=== PATIENT | female | born 1965 | race Caucasian/White ===

== ENCOUNTER 2020-05-07 06:54 | Outpatient (NON) | payer OTHER, SELFPAY ==
[2020-05-08 02:59] LABS: SARS-CoV-2 RNA PCR Negative
== END 2020-05-07 06:55 ==
LOC: ANHCOVIDDT 07:05
PROVIDERS: PCP Family Medicine; Visit Provider Family Medicine
DX: Z20.828 Contact with and (suspected) exposure to other viral communicable diseases (principal); R50.9 Fever, unspecified
CPT/HCPCS: 87635; C9803; U0003

== ENCOUNTER → 2020-10-06 11:00 | Outpatient (CLI) | payer OTHER, SELFPAY ==
[2020-10-07 00:42] LABS: SARS-CoV-2 RNA PCR Negative
== END ==
PROVIDERS: PCP Family Medicine; Visit Provider Physician Assistant
DX: Z20.822 Contact with and (suspected) exposure to COVID-19 (principal); R09.89 Other specified symptoms and signs involving the circulatory and respiratory systems
CPT/HCPCS: C9803; U0003; U0005

== ENCOUNTER → 2020-10-30 06:43 | Outpatient (CLI) | payer OTHER, SELFPAY ==
[2020-10-31 14:59] LABS: SARS-CoV-2 RNA PCR Negative
== END ==
PROVIDERS: PCP Family Medicine; Visit Provider Family Medicine
DX: R50.9 Fever, unspecified (principal); J22 Unspecified acute lower respiratory infection; Z20.822 Contact with and (suspected) exposure to COVID-19
CPT/HCPCS: C9803; U0003; U0005

== ENCOUNTER → 2021-10-02 12:35 | Outpatient (CLI) | payer OTHER, SELFPAY ==
--- NOTE | ~2021-10-02 | XR_ITS ---
XR chest 2V DATE: 10/02/2021 12:48 INDICATION: Chronic obstructive pulmonary disease TECHNIQUE: 2 views COMPARISON: 04/27/2017 two-view chest FINDINGS: Prominent bilateral hyperinflation with increased retrosternal airspace and flattening the diaphragm, consistent with COPD. No pulmonary infiltrate or consolidation or pulmonary mass lesion is evident. No hilar or mediastinal enlargement. Normal heart size. No pulmonary vascular congestion or pleural effusion or pneumothorax . Osteopenia. IMPRESSION: COPD Reviewed, dictated and finalized at location A. IMPRESSION: COPD
== END ==
PROVIDERS: PCP Family Medicine; Visit Provider Family Medicine
DX: J44.1 Chronic obstructive pulmonary disease with (acute) exacerbation (principal)
CPT/HCPCS: 71046

== ENCOUNTER 2025-02-14 12:11 | Outpatient (CLI) | payer OTHER, SELFPAY ==
--- OUTSIDE RECORDS SUMMARY | 2025-02-14 12:15 | XMS_ITS | Clinical Summary ---
Author Organization [facility] Address [address] [place] [address] Care Team Providers Care Fudger Name Role Phone Elida Mcbride Primary Care Provider [phone] Allergies Active Allergy Reactions Criticality Noted Date Comments Penicillins Rash Low 10/14/2024 Medications sertraline (ZOLOFT) 100 MG tablet Take 2 tablets (200 mg total) by mouth daily. Active azithromycin (ZITHROMAX) 250 MG tablet Take 1 tablet (250 mg total) by mouth daily. For duration of 6 months 5 Active naltrexone (DEPADE) 50 MG tablet Take 1 tablet (50 mg total) by mouth daily. 5 Active pantoprazole EC (PROTONIX) 40 MG tablet Take 1 tablet (40 mg total) by mouth daily. Active BREZTRI AEROSPHERE 160-9-4.8 MCG/ACT inhaler Inhale 2 puffs into the lungs 2 (two) times daily. 10.7 g 3 5 Active albuterol sulfate HFA 108 (90 Base) MCG/ACT inhaler Inhale 1 puff into the lungs every 4 (four) hours as needed. 18 g 3 5 Active losartan (COZAAR) 25 MG tablet Take 1 tablet (25 mg total) by mouth daily. 30 tablet 3 5 Active magnesium oxide (MAG-OX) 400 (240 Mg) MG tablet Take 1 tablet (400 mg total) by mouth daily. 30 tablet 3 5 Active predniSONE (DELTASONE) 20 MG tablet Take 2 tablets (40 mg total) by mouth daily for 3 days, THEN 1 tablet (20 mg total) daily for 3 days, THEN 0.5 tablets (10 mg total) daily for 3 days. 11 tablet 01/21/20 25 Active Problems Problem Noted Date Diagnosed Date COPD exacerbation ([facility]) 01/05/2025 Hypoxia 10/15/2024 CAP (community acquired pneumonia) 10/14/2024 Coffee ground emesis 10/14/2024 Encounters Date Type Department Care Team Description 02/06/2025 9:00 AM CDT - 02/06/2025 11:59 PM CDT Hospital Encounter [facility] Ultrasound [address] [place] [address] Elida Mcbride PA Discharge Disposition: Home or Self Care (Routine Discharge) 02/06/2025 Travel 01/11/2025 10:30 AM CDT Home Care Visit [facility] Home Care [address] [place] [address] [place] [address] Jael Spence RN SN NON ADMIT SOC 01/10/2025 Telephone [facility] Home Care [address] [place] [address] [place] [address] Jay Shipley MD Advise 01/07/2025 Travel 01/05/2025 11:32 AM CDT - 01/10/2025 11:58 AM CDT Hospital Encounter [facility] Medical/Surgical [address] [place] [address] Sandra Lopes MD SanchezRemigio MD Shortness Of Breath Discharge Disposition: Home or Self Care (Routine Discharge) 01/05/2025 Travel 12/10/2024 Telephone [facility] [address], [address] [place] [address] Hayes Gamino MD Results 11/29/2024 Telephone [facility] - [address], [address] [place] [id number] Hayes Gamino MD Information from Last 3 Months Social History Tobacco Use Types Packs/Day Years Used Date Smoking Tobacco: Every Day Cigarettes Smokeless Tobacco: Never Tobacco Cessation:Ready to Q uit: No; Counseling Given: Yes Alcohol Use Standard Drinks/Week Comments Yes 0 (1 standard drink = 0.6 oz pur e alcohol) several times a day B1300 Health Literacy Answer Date Recor ded How often do you need to hav e someone help you when you read instructions, pamphlets, or other written material from your doctor or pharmacy? Never 01/07/2025 [facility] Utilities Answer Date Recorded In the past 12 months has e [employer], gas, oil, or water [employer] threatened to shut off services in your home? No 01/07/2025 Humiliation, Afraid, Rape, and Kick questionnair e Answer Date Recorded Within the last year, have y ou been afraid of your partner or ex-partner? No 01/07/2025 Within the last year, have y ou been humiliated or emotionally abused in other ways by your partner or ex-partner? No Within the last year, have y ou been kicked, hit, slapped, or otherwise physically hurt by your partner or ex-partner? No 01/07/2025 Within the last year, have y ou been raped or forced to have any kind of sexual activity by your partner or ex-partner? No 01/07/2025 Social Connection and Isolat ion Panel [NHANES] Answer Date Recorded In a typical week, how many times do you talk on the phone with family, friends, or neighbors? More than three times a week 01/07/2025 How often do you get togethe r with friends or relatives? Once a week 01/07/2025 How often do you attend chur ch or church services? Never 01/07/2025 Do you belong to any clubs o r organizations such as roman catholic groups, unions, fraternal or athletic groups, or school groups? No 01/07/2025 How often do you attend meet ings of the clubs or organizations you belong to? Never 01/07/2025 Are you , , di vorced, , never , or living with a partner? 01/07/2025 AUDIT-C Answer Date Recorded Q1: How often do you have a drink containing alcohol? 4 or more times a week 01/07/2025 Q2: How many drinks containi ng alcohol do you have on a typical day when you are drinking? 3 or 4 Q3: How often do you have si x or more drinks on one occasion? Weekly 01/07/2025 Overall Financial Resource Strain (CARDIA) Answe r Date Recorded How hard is it for you to pa y for the very basics like food, housing, medical care, and heating? Not very hard 01/07/2025 PHQ-2 Answer Date Recorded Patient Health Questionnaire-2 Score 0 10/15/2024 [facility] - Occupational Stress Questionnaire Answer Date Recorded Do you feel stress - tense, restless, nervous, or anxious, or unable to sleep at night because your mind is troubled all the time - these days? Not at all 01/07/2025 Exercise Vital Sign Answer Date Recorde d On average, how many days pe r week do you engage in moderate to strenuous exercise (like a brisk walk)? 0 days 01/07/2025 On average, how many minutes do you engage in exercise at this level? 0 min 01/07/2025 Hunger Vital Sign Answer Date Recorded Within the past 12 months, y ou worried that your food would run out before you got the money to buy more. Never true 01/08/20 25 Within the past 12 months, t he food you bought just didn't last and you didn't have money to get more. Never true 01/07/2025 PRAPARE - Transportation Answer Date Re corded In the past 12 months, has l ack of transportation kept you from medical appointments or from getting medications? No 01/2025 In the past 12 months, has l ack of transportation kept you from meetings, work, or from getting things needed for daily living? No 01/07/2025 Housing Stability Vital Sign Answer Chava e Recorded In the last 12 months, was t here a time when you were not able to pay the mortgage or rent on time? No 01/07/2025 In the past 12 months, how m any times have you moved where you were living? 0 01/07/2025 At any time in the past 12 m [facility], were you homeless or living in a senior living (including now)? No 01/07/2025 Comments No Sex and Gender Information Value Date Recorded Sex Assigned at Female 10/14/2024 8:22 PM CDT Legal Sex Female 8:16 PM CDT Gender Identity Not on file Sexual Orientation Not on file Last Filed Vital Signs Vital Sign Reading Time Taken Comments Blood Pressure 137/87 01/10/2025 7:45 AM CDT Pulse 74 01/10/2025 7:45 AM CDT Temperature 36.4 C (97.6 F) 01/10/2025 7:45 AM CDT Respiratory Rate 20 01/10/2025 7:45 AM CDT Oxygen Saturation 89% 01/10/2025 7:45 AM CDT Inhaled Oxygen Concentration - - Weight 75.2 kg (165 lb 12.6 oz) 01/09/2025 2:29 AM CDT Height 165.1 cm (5' 5) 01/05/2025 11:4 0 AM CDT Body Mass Index 27.59 01/05/2025 11:40 AM CDT Plan of Treatment Health Maintenance Due Date Last Done Comments Cervical Cancer Screening Pa p Smear (Age 30 to 64) Every 3 Years 1966 Colorectal Cancer Screening Colonoscopy (10 Years) 1966 Annual Physical 1969 Hepatitis C 1984 DTaP, Tdap and Td Vaccines ( 1 - Tdap) 1985 Hepatitis B Vaccines (1 of 3 - 19+ 3-dose series) 1985 Pneumococcal Vaccine: 50+ Years (1 of 2 - PCV) 1985 Cervical Cancer Screening Pa p with HPV Testing (Age 30 to 64) Every 5 Years 1996 Cervical Cancer Screening wi th HPV 1996 Mammogram Screening 2006 Zoster Vaccines (1 of 2) 2016 COVID-19 Vaccine (2023-2 5 season) 2024 06/21/2021, 12/18/2020, 11/20/2020 PHQ-2 (Physician Dunlevy) Completed 10/15/2024 Meningococcal B Vaccine Aged Out No l onger eligible based on patient's age to complete this topic Meningococcal Vaccine Aged Out No alvin wendie eligible based on patient's age to complete this topic RSV Immunizations Under 20 Months Aged Out No longer eligible b ased on patient's age to complete this topic Interventions Community Resource Recommendations Community Resource Services Recommended Domains Addressed Status Status Reason/Outcome Date/Time [facility] - Out in Recovery Addiction Outpatient Treatment, Substance Use Counseling, Substance Use Services Alcohol Use, Tobacco Use Recommended 01/21/2025 9:52 PM CDT from Last 12 Months Procedures Procedure Name Priority Date/Time Associated Diagnosis Comments USE ECHOCARDIOGRAM W CON Routine 02/06/2025 9:58 AM CDT Shortness of breath Alcohol abuse, uncomplicated Fatty (change of) liver, not elsewhere classified Simple chronic bronchitis ([facility]) COMPREHENSIVE METABOLIC PANEL Routine 01/10/2025 5:15 AM CDT SIX MINUTE WALK Routine 01/09/2025 7:56 AM CDT COMPREHENSIVE METABOLIC PANEL Routine 01/09/2025 5:20 AM CDT CBC W/DIFF AUTOMATED Routine 01/09/2025 5:20 AM CDT RESPIRATORY PCR PANEL 2 STAT 01/09/20 10:45 AM CDT MAGNESIUM Routine 01/08/2025 5:20 AM CDT COMPREHENSIVE METABOLIC PANEL Routine 01/08/2025 5:20 AM CDT CBC W/DIFF AUTOMATED Routine 01/08/2025 5:20 AM CDT BASIC METABOLIC PANEL TIMED 01/07/2025 2:13 PM CDT CTA CHEST PE PROTOCOL STAT 01/07/2025 10:25 AM CDT D-DIMER, QUANTITATIVE STAT 01/07/2025 8:46 AM CDT POCT ARTERIAL BLOOD GAS Routine 01/08/20 8:24 AM CDT I-STAT VENOUS BLOOD GAS CG4 PLUS STAT 01/07/2025 8:00 AM CDT US ABD LIMITED Today 01/07/2025 7:47 AM CDT MAGNESIUM Routine 01/07/2025 5:20 AM CDT COMPREHENSIVE METABOLIC PANEL Routine 01/07/2025 5:20 AM CDT CBC W/DIFF AUTOMATED Routine 01/07/2025 5:20 AM CDT COMPREHENSIVE METABOLIC PANEL Routine 01/06/2025 4:05 AM CDT CBC W/DIFF AUTOMATED Routine 01/06/2025 4:05 AM CDT XR CHEST PORTABLE STAT 01/05/2025 12: 12 PM CDT ECG 12-LEAD Routine 01/05/2025 11:48 AM CDT RESP SYNCYTIAL VIRUS STAT 01/05/2025 11:35 AM CDT CORONAVIRUS (COVID 19) STAT 11:35 AM CDT INFLUENZA A & B STAT 01/05/2025 11:35 AM CDT MAGNESIUM Routine 01/05/2025 11:35 AM CDT PROCALCITONIN (PCT) STAT 01/05/2025 1 1:35 AM CDT PRO-BRAIN NATRIURETIC PEPTIDE Routine 01/05/2025 11:35 AM CDT TROPONIN, QUANT STAT 01/05/2025 11:35 AM CDT COMPREHENSIVE METABOLIC PANEL STAT 01/05/2025 11:35 AM CDT CBC W/DIFF AUTOMATED STAT 01/05/2025 11:35 AM CDT from Last 3 Months Results * USE ECHOCARDIOGRAM W CON (02/06/2025 9:58 AM CDT) Anatomical Region Laterality Modality NA Ultrasound 02/06/2025 9:13 AM CDT Narrative 02/09/2025 7:56 PM CDT GUY DESIR Pat.Name: Alexis Martinez Pat.ID: [id number] St.Date: 02/06/2025 Refer.MD: Nicanor, [facility] Exam Time: 9:13:00 AM Study Type:OUTREACH Height: 65 in Weight: 150 lb BSA: 1.75 m2 Age: 2 1965,59Y Sex: F Pat. Stat.:Outpatient Reason for Study:SOB Procedures: 2D, M-mode, Doppler, Color Flow, Myocardial contrast was used to enhance endocardial definition. Study performed at [facility], [place], [place] and interpreted by [facility]. ++++++++++++++++++++++++++++++++++++ SUMMARY: ++++++++++++++++++++++++++++++++++++ The left ventricular systolic function is normal. Estimated left ventricular ejection fraction is 60-65%. Left ventricular diastolic function is not reliably assessed. Wall motion appears normal in all segments. Right ventricular systolic function is mildly depressed. No significant valvular abnormalities. Compared to the previous study the ejection fraction has not changed. ++++++++++++++++++++++++++++++++++++ FINDINGS: ++++++++++++++++++++++++++++++++++++ LV: The left ventricular size is normal. The left ventricular systolic function is normal. Estimated left ventricular ejection fraction is 60-65%. Left ventricular diastolic function is not reliably assessed. WM: Wall motion appears normal in all segments. RV: The right ventricular size is normal. Right ventricular systolic function is mildly depressed. TAPSE = 14mm (<16 mm indicates systolic RV dysfunction). LA: Left atrial size is normal. RA: The right atrial size is normal. IAS: Atrial septum appears intact. LIDIA: No evidence of pericardial effusion. Prominent pericardial fat pad visualized. AO: Aorta is normal. PA: Estimated right atrial pressure of 3 mmHg. Unable to reliably quantitate pulmonary systolic pressure. SVn: Inferior vena cava is normal. Other: Compared to the previous study the ejection fraction has not changed. AV: The aortic valve is probably trileaflet. No clear spectral or echocardiographic evidence of aortic valve stenosis. The aortic valve not well visualized. MV: The mitral valve is structurally normal. There is trace mitral regurgitation. PV: No evidence of pulmonic valve stenosis. A trace of pulmonic regurgitation. Pulmonic valve not well visualized. TV: The tricuspid valve appears structurally normal. There is trace tricuspid regurgitation. <Electronic Signature> 02/09/2025 07:56 PM Daiana Encinas M.D. Procedure Note Daiana Encinas MD - 02/09/2025 GUY DESIR Pat.Name: Alexis Martinez Sruthi.ID: [id number] .Date: 02/06/2025 Refer.MD: Nicanor, [facility] Exam Time: 9:13:00 AM Study Type:OUTREACH Height: 65 in Weight: 150 lb BSA: 1.75 m2 Age: 2 1965,59Y Sex: F Pat. Stat.:Outpatient Reason for Study:SOB Procedures: 2D, M-mode, Doppler, Color Flow, Myocardial contrast was used to enhance endocardial definition. Study performed at [facility], [place], [place] and interpreted by [facility]. ++++++++++++++++++++++++++++++++++++ SUMMARY: ++++++++++++++++++++++++++++++++++++ The left ventricular systolic function is normal. Estimated left ventricular ejection fraction is 60-65%. Left ventricular diastolic function is not reliably assessed. Wall motion appears normal in all segments. Right ventricular systolic function is mildly depressed. No significant valvular abnormalities. Compared to the previous study the ejection fraction has not changed. ++++++++++++++++++++++++++++++++++++ FINDINGS: ++++++++++++++++++++++++++++++++++++ LV: The left ventricular size is normal. The left ventricular systolic function is normal. Estimated left ventricular ejection fraction is 60-65%. Left ventricular diastolic function is not reliably assessed. WM: Wall motion appears normal in all segments. RV: The right ventricular size is normal. Right ventricular systolic function is mildly depressed. TAPSE = 14mm (<16 mm indicates systolic RV dysfunction). LA: Left atrial size is normal. RA: The right atrial size is normal. IAS: Atrial septum appears intact. LIDIA: No evidence of pericardial effusion. Prominent pericardial fat pad visualized. AO: Aorta is normal. PA: Estimated right atrial pressure of 3 mmHg. Unable to reliably quantitate pulmonary systolic pressure. SVn: Inferior vena cava is normal. Other: Compared to the previous study the ejection fraction has not changed. AV: The aortic valve is probably trileaflet. No clear spectral or echocardiographic evidence of aortic valve stenosis. The aortic valve not well visualized. MV: The mitral valve is structurally normal. There is trace mitral regurgitation. PV: No evidence of pulmonic valve stenosis. A trace of pulmonic regurgitation. Pulmonic valve not well visualized. TV: The tricuspid valve appears structurally normal. There is trace tricuspid regurgitation. <Electronic Signature> 02/09/2025 07:56 PM Daiana Encinas M.D. [facility] ECHO Final Result * (ABNORMAL) COMPREHENSIVE METABOLIC PANEL (01/10/2025 5:15 AM CDT) Only the most recent of6 resultswithin the time period is included. GLUCOSE 114(H) 70 - 99 MG/DL 01/10/2025 5:46 AM CDT [facility] BUN 23(H) 7 - 18 MG/DL 01/10/2025 5:46 AM CDT [facility] CREATININE S/P/B 0.47(L) 0.50 - 1.20 MG/DL 01/10/2025 5:46 AM CDT [facility] SODIUM S/P/B 136 136 - 145 MMOL/L 01/10/2025 5:46 AM CDT [facility] POTASSIUM S/P/B 3.8 3.5 - 5.1 MMOL/L 01/10/2025 5:46 AM CDT [facility] CHLORIDE S/P/B 97(L) 100 - 108 MMOL/L 01/10/2025 5:46 AM CDT [facility] CO2 30.6 21.0 - 32.0 MMOL/L 01/10/2025 5:46 AM CDT [facility] CALCIUM S/P/B 8.7 8.5 - 10.1 MG/DL 01/10/2025 5:46 AM CDT [facility] BILIRUBIN TOTAL S/P/B 1.7(H) 0.2 - 1.2 MG/DL 01/10/2025 5:46 AM CDT [facility] Comment: THIS ASSAY IS NOT RECOMMENDED FOR PATIENTS UNDERGOING TREATMENT WITH ELTROMBOPAG DUE TO THE POTENTIAL FOR FALSELY ELEVATED RESULTS. TOTAL PROTEIN S/P/B 6.2(L) 6.4 - 8.2 G/DL 01/10/2025 5:46 AM CDT [facility] ALBUMIN S/P/B 2.7(L) 3.4 - 5.0 G/DL 01/10/2025 5:46 AM CDT [facility] AST 254(H) 15 - 37 U/L 01/10/2025 5:46 AM CDT [facility] ALT 406(H) 14 - 55 U/L 01/10/2025 5:46 AM CDT [facility] ALKALINE PHOSPHATASE S/P/B 264(H) 50 - 136 U/L 01/10/2025 5:46 AM CDT [facility] ANION GAP 8.4 5.0 - 15.0 MMOL/L 01/10/2025 5:46 AM CDT [facility] BUN CREATININE RATIO 48.9(H) 6 - 26 01/10/2025 5:46 AM CDT [facility] A/G RATIO 0.8(L) 1.0 - 2.5 RATIO 01/10/2025 5:46 AM CDT [facility] GFR ESTIMATE >90 >90 ML/MIN/1.7 3 M2 01/10/2025 5:46 AM CDT [facility] Comment: NOTE: eGFR is not calculated for patients <18 years of age. This is an estimated GFR calculation using the new CKD EPI creatinine equation without race and so does not require a correction factor for race. This estimated GFR should not be used for calculating drug doses. 01/10/2025 5:15 AM CDT us Remigio Bradford MD LABORATORY Final Result [address] [place] [address], * (ABNORMAL) CBC W/DIFF AUTOMATED (01/09/2025 5:20 AM CDT) Only the most recent of5 resultswithin the time period is included. WBC 7.46 4.50 - 11.00 x10'3/uL 01/09/2025 5:58 AM CDT [facility] RBC 4.28 4.00 - 5.20 x10'6/uL 01/09/2025 5:58 AM CDT [facility] HGB 15.1 12.0 - 16.0 G/DL 01/09/2025 5:58 AM CDT [facility] HCT 43.6 38.0 - 48.0 % 01/09/2025 5:58 AM CDT [facility] MCV 101.9(H) 80.0 - 100.0 FL 01/09/2025 5:58 AM CDT [facility] MCH 35.3(H) 26.0 - 34.0 PG 01/09/2025 5:58 AM CDT [facility] MCHC 34.6 31.0 - 37.0 G/DL 01/09/2025 5:58 AM CDT [facility] RDW 17.1(H) 11.6 - 14.8 % 01/09/2025 5:58 AM CDT [facility] PLT 140 130 - 400 x10'3/uL 01/09/2025 5:58 AM CDT [facility] MPV 10.2 7.0 - 12.0 FL 01/09/2025 5:58 AM CDT [facility] CBC COMMENT AUTOMATED RBC MORPHOLOGY AND PLATELET EVALUATION NORMAL 01/09/2025 5:58 AM CDT [facility] NEUTROPHILS % 85.3(H) 40.0 - 74.0 % 01/09/2025 5:58 AM CDT [facility] LYMPHOCYTES % 6.2(L) 14.0 - 46.0 % 01/09/2025 5:58 AM CDT [facility] MONOCYTES % 7.8 4.0 - 13.0 % 01/09/2025 5:58 AM CDT [facility] EOSINOPHILS 0.0 0.0 - 7.0 % 01/09/2025 5:58 AM CDT [facility] BASOPHILS 0.0 0.0 - 3.0 % 01/09/2025 5:58 AM CDT [facility] IMMATURE GRANS % 0.7(H) 0.0 - 0.43 % 01/09/2025 5:58 AM CDT [facility] NRBC % 0.0 % 01/09/2025 5:58 AM CDT [facility] ABS. NEUTROPHILS TOTAL 6.37 1.69 - 7.81 x10'3/uL 01/09/2025 5:58 AM CDT [facility] ABS. LYMPHOCYTES 0.46 0.21 - 5.42 x10'3/uL 01/09/2025 5:58 AM CDT [facility] ABS. MONOCYTES 0.58 0.04 - 1.37 x10'3/uL 01/09/2025 5:58 AM CDT [facility] ABS. EOSINOPHILS 0.00 0.00 - 0.68 x10'3/uL 01/09/2025 5:58 AM CDT [facility] ABS. BASOPHILS 0.00 0.00 - 0.08 x10'3/uL 01/09/2025 5:58 AM CDT [facility] ABS. IMMATURE GRANULOCYTES 0.05 0.00 - 0.06 x10'3/uL 01/09/2025 5:58 AM CDT [facility] ABS. NUCLEATED RBC'S 0.00 0.00 - 0.01 x10'3/uL 01/09/2025 5:58 AM CDT [facility] 01/09/2025 5:20 AM CDT Remigio Bradford MD LABORATORY Final Result [address] [place] [address], * RESPIRATORY PCR PANEL 2 (01/08/2025 10:45 AM CDT) ADENOVIRUS PCR (RESP) NOT DETECTED NOT DETECTED 01/08/2025 3:12 PM CDT [facility] CORONAVIRUS 229E PCR (RESP) NOT DETECTED NOT DETECTED 01/08/2025 3:12 PM CDT [facility] CORONAVIRUS HKU1 PCR (RESP) NOT DETECTED NOT DETECTED 01/08/2025 3:12 PM CDT [facility] CORONAVIRUS NL63 PCR (RESP) NOT DETECTED NOT DETECTED 01/08/2025 3:12 PM CDT [facility] CORONAVIRUS OC43 PCR (RESP) NOT DETECTED NOT DETECTED 01/08/2025 3:12 PM CDT [facility] METAPNEUMOVIRUS PCR (RESP) NOT DETECTED NOT DETECTED 01/08/2025 3:12 PM CDT [facility] RHINOVIRUS/ENTEROV IRUS PCR (RESP) NOT DETECTED NOT DETECTED 01/08/2025 3:12 PM CDT [facility] INFLUENZA A PCR (RESP) NOT DETECTED NOT DETECTED 01/08/2025 3:12 PM CDT [facility] INFLUENZA B PCR (RESP) NOT DETECTED NOT DETECTED 01/08/2025 3:12 PM CDT [facility] PARAINFLUENZA 1 PCR (RESP) NOT DETECTED NOT DETECTED 01/08/2025 3:12 PM CDT [facility] PARAINFLUENZA 2 PCR (RESP) NOT DETECTED NOT DETECTED 01/08/2025 3:12 PM CDT [facility] PARAINFLUENZA 3 PCR (RESP) NOT DETECTED NOT DETECTED 01/08/2025 3:12 PM CDT [facility] PARAINFLUENZA 4 PCR (RESP) NOT DETECTED NOT DETECTED 01/08/2025 3:12 PM CDT [facility] RSV PCR (RESP) NOT DETECTED NOT DETECTED 01/08/2025 3:12 PM CDT [facility] B PARAPERTUSIS PCR (RESP) NOT DETECTED NOT DETECTED 01/08/2025 3:12 PM CDT [facility] BORDETELLA PERTUSSIS PCR (RESP) NOT DETECTED NOT DETECTED 01/08/2025 3:12 PM CDT [facility] CHLAMYDOPHILA PNEUMONIAE PCR (RESP) NOT DETECTED NOT DETECTED 01/08/2025 3:12 PM CDT [facility] MYCOPLASMA PNEUMONIAE PCR (RESP) NOT DETECTED NOT DETECTED 01/08/2025 3:12 PM CDT [facility] CORONAVIRUS SARS COV 2 PCR (RESP) NOT DETECTED NOT DETECTED 01/08/2025 3:12 PM CDT [facility] NASOPHARYNGEAL SWAB / Unknown 01/08/2025 10:45 AM CDT Remigio Bradford MD MICROBIOLOGY - GENERAL ORDERA BLES Final Result Performing Organization Address City/[facility]/ZIP Co de Phone Number [facility] [address] [place] [address], * MAGNESIUM (01/08/2025 5:20 AM CDT) Only the most recent of3 resultswithin the time period is included. MAGNESIUM 1.9 1.8 - 2.4 MG/DL 01/08/2025 9:52 AM CDT [facility] 01/08/2025 5:20 AM CDT Remigio Bradford MD LABORATORY Final Result Performing Organization Address City/[facility] Co de Phone Number [facility] [address] [place] [address], * (ABNORMAL) BASIC METABOLIC PANEL (01/07/2025 2:13 PM CDT) GLUCOSE 88 70 - 99 MG/DL 01/07/2025 3:51 PM CDT [facility] BUN 16 7 - 18 MG/DL 01/07/2025 3:51 PM CDT [facility] CREATININE S/P/B 0.39(L) 0.50 - 1.20 MG/DL 01/07/2025 3:51 PM CDT [facility] LAB SODIUM S/P/B 138 136 - 145 MMOL/L 01/07/2025 3:51 PM CDT [facility] POTASSIUM S/P/B 4.4 3.5 - 5.1 MMOL/L 01/07/2025 3:51 PM CDT [facility] CHLORIDE S/P/B 97(L) 100 - 108 MMOL/L 01/07/2025 3:51 PM CDT [facility] CO2 31.2 21.0 - 32.0 MMOL/L 01/07/2025 3:51 PM CDT [facility] CALCIUM S/P/B 9.1 8.5 - 10.1 MG/DL 01/07/2025 3:51 PM CDT [facility] ANION GAP 9.8 5.0 - 15.0 MMOL/L 01/07/2025 3:51 PM CDT [facility] BUN CREATININE RATIO 41.0(H) 6 - 26 01/07/2025 3:51 PM CDT [facility] GFR ESTIMATE >90 >90 ML/MIN/1.7 3 M2 01/07/2025 3:51 PM CDT [facility] Comment: NOTE: eGFR is not calculated for patients <18 years of age or gender unknown. This is an estimated GFR calculation using the new CKD EPI creatinine equation without race and so does not require a correction factor for race. This estimated GFR should not be used for calculating drug doses. 01/07/2025 2:13 PM CDT us Remigio Bradford MD LABORATORY Final Result Performing Organization Address City/State/[facility] Co de Phone Number [address] [place] [address], * CTA CHEST PE PROTOCOL (01/07/2025 10:25 AM CDT) Anatomical Region Laterality Modality Chest Computed Tomogra phy 01/07/2025 10:3 1 AM CDT Impressions 01/07/2025 10:32 AM CDT IMPRESSION: 1. No evidence of pulmonary embolism. 2. Moderate emphysema 3. Severe hepatic steatosis Ordered By: REMIGIO BRADFORD Interpreted By: Yonny Heart MD, 01/07/2025 10:31 AM Narrative 01/07/2025 10:32 AM CDT [address] [place] [address] CTA CHEST WITH CONTRAST PULMONARY EMBOLISM PROTOCOL Clinical history: 50. Technique: Dynamic helical images of the chest were obtained after the patient received 95 mL of Isovue 370 nonionic intravenous contrast through an IV in the left antecubital fossa. Images are reviewed in axial, sagittal, and three-dimensional reformatted views. A dose lowering technique was used for this procedure, which may include, but is not limited to, dose reduction technique, automated exposure control, the use of iterative reconstruction, and ALARA (As Low As Reasonably Achievable) / Image Gently techniques. 3-D MIP formatted images were also obtained and are made available for review. Comparison: without prior studies available for comparison. FINDINGS: The obtained images demonstrate good opacification of the pulmonary vasculature. No intraluminal filling defects are observed. There is no evidence of pulmonary embolism. The heart appears normal in size and morphology. No significant pericardial effusion is seen. No pathologically enlarged lymph nodes are present within the mediastinum or ole. No axillary adenopathy is observed. The great vessels are within normal limits. Pulmonary windows reveal moderate emphysematous changes which are seen probably toward the apices. No areas of consolidation are seen. No pleural fluid is noted Images of the upper abdomen demonstrate severe hepatic steatosis Procedure Note Yonny Heart MD - 01/07/[address] [place] [address] CTA CHEST WITH CONTRAST PULMONARY EMBOLISM PROTOCOL Clinical history: 50. Technique: Dynamic helical images of the chest were obtained after thepatient received 95 mL of Isovue 370 nonionic intravenous contrast throughan IV in the left antecubital fossa. Images are reviewed in axial,sagittal, and three-dimensional reformatted views. A dose loweringtechnique was used for this procedure, which may include, but is notlimited to, dose reduction technique, automated exposure control, the useof iterative reconstruction, and ALARA (As Low As Reasonably Achievable) /Image Gently techniques. 3-D MIP formatted images were also obtained and are made available forreview. Comparison: without prior studies available for comparison. FINDINGS: The obtained images demonstrate good opacification of the pulmonaryvasculature. No intraluminal filling defects are observed. There is noevidence of pulmonary embolism. The heart appears normal in size and morphology. No significantpericardial effusion is seen. No pathologically enlarged lymph nodes arepresent within the mediastinum or ole. No axillary adenopathy isobserved. The great vessels are within normal limits. Pulmonary windows reveal moderate emphysematous changes which are seenprobably toward the apices. No areas of consolidation are seen. No pleuralfluid is noted Images of the upper abdomen demonstrate severe hepatic steatosis IMPRESSION: 1. No evidence of pulmonary embolism. 2. Moderate emphysema 3. Severe hepatic steatosis Ordered By: REMIGIO BRADFORD Interpreted By: Yonny Heart MD, 01/07/2025 10:31 AM Remigio Bradford MD CT Final Result * (ABNORMAL) D-DIMER, QUANTITATIVE (01/07/2025 8:46 AM CDT) D-DIMER 2,595(HH) 0 - 500 ng{FEU}/m L 01/07/2025 9:45 AM CDT [facility] Comment: RESULTS VERIFIED AND CALLED Magui [id number] @ 0945 D-Dimer values less than or equal to 500 ng/mL FEU have a negative predictive value of >95% for exclusion of deep vein thrombosis and pulmonary embolism. In patients over 50 (who tend to have higher normal baseline D-Dimer values), recent studies suggest age-adjusted D-Dimer cutoff values (calculated as: age [years] x 10 ng/mL) result in equivalent outcomes and no additional false negative findings. CORRECTED ON 01/07 AT 0945: PREVIOUSLY REPORTED [id number] ALERT VALUE CALLED TO AND READ BACK BY: [facility] [id number] AJD 01/07/2025 8:46 AM CDT Remigio Bradford MD LABORATORY Edited Result - Final [facility] [address] [place] [address], [place] * (ABNORMAL) ISTAT Blood Gas CG4 PLUS (01/07/2025 8:24 AM CDT) [facility] POC PH WHOLE BLOOD 7.56(H) 7.35 - 7.45 01/07/2025 4:20 PM CDT [facility] POC PCO2 WHOLE BLOOD 41.8 35 - 45 MMHG 01/07/2025 4:20 PM CDT [facility] POC PO2 WHOLE BLOOD 48(LL) 80 - 100 MMHG 01/07/2025 4:20 PM CDT [facility] POC CO2 TOTAL WHOLE BLOOD 39(H) 21 - 32 MMOL/L 01/07/2025 4:20 PM CDT [facility] POC BICARB WHOLE BLOOD 37.3(H) 22 - 26 MMOL/L 01/07/2025 4:20 PM CDT [facility] POC BASE EXCESS WHOLE BLOOD 15(H) 0 - 3 MMOL/L 01/07/2025 4:20 PM CDT [facility] POC O2 SATURATION WHOLE BLOOD 88(L) 95 - 100 % 01/07/2025 4:20 PM CDT [facility] 01/07/2025 8:24 AM CDT us Remigio Bradford MD POINT OF CARE TEST ORDERABLES Final Result [facility] [address] [place] [address], [place] * (ABNORMAL) BLOOD GAS, VENOUS POC (01/07/2025 8:00 AM CDT) Pathologist [facility] POC PH VENOUS 7.55(HH) 7.31 - 7.41 01/07/2025 8:59 AM CDT [facility] Comment: ALERT VALUE CALLED TO AND READ BACK BY: [facility] [id number] [facility]D POC PO2 VENOUS 48 MMHG 01/07/2025 8:59 AM CDT [facility] Comment:NO REFERENCE RANGE H BEEN ESTABLISHED POC PCO2 VENOUS 41.8 41 - 51 MMHG 01/07/2025 8:59 AM CDT [facility] POC HCO3 VENOUS 37.3(H) 23 - 28 MMOL/L 01/07/2025 8:59 AM CDT [facility] POC TCO2 VENOUS 39(H) 24 - 29 MMOL/L 01/07/2025 8:59 AM CDT [facility] POC BASE EXCESS VENOUS 15(H) 0 - 3 MMOL/L 01/07/2025 8:59 AM CDT [facility] 01/07/2025 8:00 AM CDT us Remigio Bradford MD LABORATORY Final Result [address] [place] [address], [place] * US ABD LIMITED (01/07/2025 7:47 AM CDT) Anatomical Region Laterality Modality Abdomen Computed Tomogra phy 01/07/2025 8:45 AM CDT Impressions 01/07/2025 8:59 AM CDT IMPRESSION: 1. Hepatomegaly with fatty infiltration of the liver. 2. Probable small gallbladder polyp. 3. Possible minimal perihepatic fluid. Ordered By: REMIGIO BRADFORD Interpreted By: Venkata Salinas, 01/07/2025 8:45 AM Narrative 01/07/2025 8:59 AM CDT [address] [place] [address] IMAGING STUDIES: US ABD LIMITED DATE: 01/07/2025 7:07 AM COMPARISON STUDIES: CT abdomen of 10/15/2024 CLINICAL HISTORY: Abnormal liver enzymes.. FINDINGS: Normal appearance to the gallbladder without calculi. No gallbladder wall thickening. Appearance of small probable 3 mm polyp along the posterior aspect of the gallbladder. Nonmobile. Moderate fatty infiltration of the liver without focal mass..Hepatic and portal veins are patent.. Common bile duct measures.3.3 mm. Enlarged liver with CC dimension of 22 cm.. Possible minimal perihepatic fluid. No perihepatic fluid was seen on above-stated prior CT.. Partially visualized pancreas without gross abnormality. Procedure Note Jordan Salinas MD - 01/07/[address] [place] [address] IMAGING STUDIES: US ABD LIMITED DATE: 01/07/2025 7:07 AM COMPARISON STUDIES: CT abdomen of 10/15/2024 CLINICAL HISTORY: Abnormal liver enzymes.. FINDINGS: Normal appearance to the gallbladder without calculi. No gallbladder wallthickening. Appearance of small probable 3 mm polyp along the posterioraspect of the gallbladder. Nonmobile. Moderate fatty infiltration of the liver without focal mass..Hepatic andportal veins are patent.. Common bile duct measures.3.3 mm. Enlarged liver with CC dimension of 22 cm.. Possible minimal perihepaticfluid. No perihepatic fluid was seen on above-stated prior CT.. Partially visualized pancreas without gross abnormality. IMPRESSION: 1. Hepatomegaly with fatty infiltration of the liver. 2. Probable small gallbladder polyp. 3. Possible minimal perihepatic fluid. Ordered By: REMIGIO BRADFORD Interpreted By: Venkata Salinas, 01/07/2025 8:45 AM Remigio Bradford MD ULTRASOUND Final Result * XR CHEST PORTABLE (01/05/2025 12:12 PM CDT) Anatomical Region Laterality Modality Chest Computed Tomogra phy 01/05/2025 12:1 6 PM CDT Impressions 01/05/2025 12:17 PM CDT IMPRESSION: No acute findings. Referred By: Interpreted By: lAonso Faulkner MD, 01/05/2025 12:16 PM Narrative 01/05/2025 12:17 PM CDT [address] [place] [address] Examination: XR CHEST PORTABLE Exam time: 01/05/2025 11:54 AM Clinical history: cough, sob, weakness, chest heaviness worsening since september. h/o copd, smoker Comparison: 10/14/2024 Technique: One frontal view of the chest. Findings: The cardiac silhouette, mediastinal contours, and pulmonary vessels appear normal. The lungs are clear. No pneumothorax. No consolidations or effusions are seen. No acute fracture. Procedure Note Alonso Faulkner MD - 01/05/[address] [place] [address] Examination: XR CHEST PORTABLE Exam time: 01/05/2025 11:54 AM Clinical history: cough, sob, weakness, chest heaviness worsening sinceseptember. h/o copd, smoker Comparison: 10/14/2024 Technique: One frontal view of the chest. Findings: The cardiac silhouette, mediastinal contours, and pulmonaryvessels appear normal. The lungs are clear. No pneumothorax. Noconsolidations or effusions are seen. No acute fracture. IMPRESSION: No acute findings. Referred By: Interpreted By: Alonso Faulkner MD, 01/05/2025 12:16 PM us Sandra Lopes MD GENERAL IMAGING Final Resul t * ECG 12 lead (01/05/2025 11:48 AM CDT) 01/05/2025 11:4 8 AM CDT Narrative [facility] - 01/07/2025 6:16 AM CDT HFG Test Date: 2025-01-05 Pat Name: ALEXIS MARTINEZ Department: 100 Room: 36 Gender: Female [employer] [place]: OSMANI : 1965 Requested By: SANDRA LOPES Order Number: [id number] Reading MD: Eduard Oliveira Measurements Intervals Mason Rate: 88 P: 73 IL: 165 QRS: 172 QRSD: 94 T: 55 QT: 391 QTc: 474 Interpretive Statements SINUS RHYTHM POSSIBLE RIGHT VENTRICULAR HYPERTROPHY [SOME/ALL OF: PROMINENT R IN V1, LATE TRANSITION, RAD, RAINE, SSS] MODERATE T-WAVE ABNORMALITY, CONSIDER ANTERIOR ISCHEMIA [-0.1+ mV T WAVE IN V3/V4] Procedure Note Eduard Oliveira MD - 01/07/2025 HFG Test Date: 2025-01-05 Pat Name: ALEXIS MARTINEZ Department: 100 Room: 36 Gender: Female [employer] [place] [employer]: OSMANI : 1965 Requested By: SANDRA LOPES Order Number: [id number] Reading MD: Eduard Oliveira Measurements Intervals Mason Rate: 88 P: 73 IL: 165 QRS: 172 QRSD: 94 T: 55 QT: 391 QTc: 474 Interpretive Statements SINUS RHYTHM POSSIBLE RIGHT VENTRICULAR HYPERTROPHY [SOME/ALL OF: PROMINENT R IN V1,LATE TRANSITION, RAD, RAINE, SSS] MODERATE T-WAVE ABNORMALITY, CONSIDER ANTERIOR ISCHEMIA [-0.1+ mV T WAVEIN V3/V4] us Sandra Lopes MD ECG ORDERABLES Final Resul t [place] [id number] * PROCALCITONIN (PCT) (01/05/2025 11:35 AM CDT) PROCALCITONIN 0.10 0.00 - 0.25 NG/ML 01/07/2025 10:30 AM CDT [facility] Comment: PROCALCITONIN INTERPRETATION GUIDELINES LOWER RESPIRATORY TRACT INFECTIONS (LRTI): USE OF PCT IN INPATIENT OR EMERGENCY SITUATION INITIATION OF ANTIBIOTICS PCT VALUE INTERPRETATION <0.10 NG/ML ANTIBIOTIC THERAPY STRONGLY DISCOURAGED. 0.10-0.25 NG/ML ANTIBIOTIC THERAPY DISCOURAGED. 0.26-0.50 NG/ML ANTIBIOTIC THERAPY ENCOURAGED. >0.50 NG/ML ANTIBIOTIC THERAPY STRONGLY ENCOURAGED. DISCONTINUE ANTIBIOTICS PCT LESS THAN OR EQUAL TO 0.25 NG/ML OR DELTA PCT >80 PERCENT DELTA PCT= PCT(PEAK)-PCT(CURRENT)/PCT(PEAK)X100% STUDIES HAVE EVALUATED PCT PROTOCOLS IN THESE PATIENTS AND FOUND THAT FOR PATIENTS WHO ARE CLINICALLY STABLE AND ARE TREATED AT THE ED OR ARE HOSPITALIZED, THE INITIATION OF ANTIBIOTIC THERAPY SHOULD BE BASED ON CLINICAL GROUNDS AND A PCT VALUE OF GREATER THAN OR EQUAL TO 0.26 NG/ML. IF PCT REMAINS LOWER, ANTIBIOTICS CAN BE WITHHELD AND PATIENTS CAN BE REASSESSED CLINICALLY WITHOUT SAFETY CONCERNS. IF PATIENTS ARE CLINICALLY STABLE, AN ALTERNATIVE DIAGNOSIS SHOULD BE CONSIDERED. IF PATIENTS ARE UNSTABLE, THEN ANTIBIOTICS MAY BE CONSIDERED. IF PATIENTS DO NOT IMPROVE IN THE SHORT FOLLOW UP PERIOD OF 6 TO 12 HOURS, CLINICAL RE-EVALUATION AND RE-MEASUREMENT OF PCT IS RECOMMENDED. 01/05/2025 11:3 5 AM CDT us Sandra Lopes MD LABORATORY Final Resul t Performing Organization Address [facility] de Phone Number [facility] [address] [place] [address], * CORONAVIRUS (COVID-19) MOLECULAR (01/05/2025 11:35 AM CDT) [facility] CORONAVIRUS SARS COV 2 RNA NEGATIVE NEGATIVE 01/05/2025 12:53 PM CDT [facility] Comment: NEGATIVE RESULTS DO NOT RULE OUT COVID 19 AND SHOULD NOT BE USED THE SOLE BASIS FOR TREATMENT OR PATIENT MANAGEMENT DECISIONS, INCLUDING INFECTION CONTROL DECISIONS. NEGATIVE RESULTS SHOULD BE CONSIDERED IN THE CONTEXT OF A PATIENT'S RECENT EXPOSURES, HISTORY AND THE PRESENCE OF CLINICAL SIGNS AND SYMPTOMS CONSISTENT WITH COVID 19. THE ID NOW COVID-19 2.0 TEST HAS BEEN AUTHORIZED BY THE FDA UNDER EAU FOR USE BY AUTHORIZED LABORATORIES. PERFORMED BY NUCLEIC ACID AMPLIFICATION FOR MOLECULAR QUALITATIVE DETECTION OF SARS-COV-2. SPECIMEN TYPE NASAL 01/05/2025 11:52 AM CDT [facility] NASOPHARYNGEAL SWAB / Unknown 01/05/2025 11:35 AM CDT us Sandra Lopes MD MICROBIOLOGY - GENERAL ORDE RABLES Final Result Performing Organization Address City/State/[facility] Co de Phone Number [facility] [address] [place] [address], [place] * (ABNORMAL) PRO-BRAIN NATRIURETIC PEPTIDE (01/05/2025 11:35 AM CDT) PRO-BRAIN NATRIURETIC PEPTIDE 3,293(H) 0 - 125 PG/ML 01/05/2025 1:09 PM CDT [facility] Comment: PEPITO SIDDIQUI 1300 CUT POINTS ESTABLISHED BY [employer] ON NT PROBNP (ICON) STUDY (2006). AGE INDEPENDENT: <300 PG/ML HAS A 99% NEGATIVE PREDICTIVE VALUE FOR EXCLUDING ACUTE CHF <50 YEARS: >450 PG/ML IS CONSISTENT WITH ACUTE CHF 50-75 YEARS: >900 PG/ML IS CONSISTENT WITH ACUTE CHF >75 YEARS: >1800 PG/ML IS CONSISTENT WITH ACUTE CHF IN PATIENTS WITH RENAL INSUFFICIENCY (GFR <60), >1200 PG/ML YIELDS A DIAGNOSTIC SENSITIVITY AND SPECIFICITY OF 89% AND 72% FOR ACUTE CHF. 01/05/2025 11:3 5 AM CDT us Sandra Lopes MD LABORATORY Final Resul t Performing Organization Address [facility] de Phone Number [address] [place] [address], [place] * INFLUENZA A & B (01/05/2025 11:35 AM CDT) SPECIMEN TYPE NASOPHARYNX 01/05/2025 11:52 AM CDT [facility] INFLUENZA A NEGATIVE NEGATIVE 01/05/2025 12:40 PM CDT [facility] INFLUENZA B NEGATIVE NEGATIVE 01/05/2025 12:40 PM CDT [facility] NASAL STRUCTURE / Unknown 01/05/2025 11:35 AM CDT us Sandra Lopes MD MICROBIOLOGY - GENERAL BERRY CASH Final Result Performing Organization Address City/[facility]/ZIP Co de Phone Number [facility] [address] * RESP SYNCYTIAL VIRUS (01/05/2025 11:35 AM CDT) SPECIMEN TYPE NASOPHARYNGEAL SWAB 01/05/2025 11:52 AM CDT [facility] RAPID RSV NEGATIVE NEGATIVE 01/05/2025 12:40 PM CDT [facility] NASOPHARYNGEAL SWAB / Unknown 01/05/2025 11:35 AM CDT Sandra Lopes MD MICROBIOLOGY - [facility] Final Result [facility] [address] [place] [address], * TROPONIN, QUANT (01/05/2025 11:35 AM CDT) TROPONIN I HIGH SENSITIVITY 37 0 - 54 ng/L 01/05/2025 12:22 PM CDT [facility] Comment: HIGH DOSES OF BIOTIN, TROPONIN-SPECIFIC AUTOANTIBODIES, AND ANTIBODY THERAPY CONTAINING HAMA MAY INTERFERE WITH THIS TEST RESULT. CORRELATION TO CLINICAL HISTORY AND PRESENTATION RECOMMENDED. 01/05/2025 11:3 5 AM CDT Sandra Lopes MD LABORATORY Final Resul t Performing Organization Address City/[facility]/ZIP Co de Phone Number [facility] [address] [place] [place] [address], from Last 3 Months Insurance Advance Directives Documents on File Type Date Recorded Patient Cryptologic Support Specialist Expl anation Advance Directives and Livin g Will 11/21/2024 7:42 AM * Full Code (Latest Code Status on File) Date Activated Date Inactivated Comments 01/05/2025 3:57 PM 01/10/2025 2:02 PM * Full Code Date Activated Date Inactivated Comments 10/15/2024 11:41 AM 10/18/2024 3:56 PM Healthcare Agents on File Name Relationship Healthcare Agent Relationshi p Communication Mich Martinez Son Health Care Agent Tess Martinez Daughter First Alternate Health Care Agent Care Teams Fudger Relationship Specialty Start Date End Date Elida Mcbride PA [address] [place] [address] PCP - General PHYSICIAN EMS COORDINATOR 01/10/25
--- OUTSIDE RECORDS SUMMARY | 2025-02-14 12:15 | XMS_ITS | Encounter Summary ---
Author Organization [facility] Address [facility] [place] [address] Care Team Providers Care Auxiliary Operator Name Role Phone Elida Mcbride Primary Care Provider [phone] Reason for Visit * Reason Onset Date Comments Advise 01/10/2025 Encounter Details Date Type Department Care Team (Late st Contact Info) Description 01/10/2025 Telephone [facility] Care [address] [place] [address] [place] [address] Jay Shipley MD [address] [place] [address] [id number] Advise Social History Tobacco Use Types Packs/Day Years Used Date Smoking Tobacco: Every Day Cigarettes Smokeless Tobacco: Never Alcohol Use Standard Drinks/Week Comments Yes 0 (1 standard drink = 0.6 oz pur e alcohol) several times a day B1300 Health Literacy Answer Date Recor ded How often do you need to hav e someone help you when you read instructions, pamphlets, or other written material from your doctor or pharmacy? Never 01/07/2025 [facility] Utilities Answer Date Recorded In the past 12 months has e electric, gas, oil, or water company threatened to shut off services in your [...] 01/07/2025 How often do you attend chur or episcopal services? Never 01/07/2025 Do you belong to any clubs o r organizations such as restorationist groups, unions, fraternal or athletic groups, or [...] Recorded Patient Health Questionnaire-2 Score 0 10/15/2024 [facility] [place] of Occupat ional Health - Occupational Stress [...] any time in the past 12 m [facility], were you homeless or living in a snf (including now)? No 01/07/2025 Comments No Sex and Gender Information Value Date Recorded Sex Assigned at Female 10/14/2024 8:22 PM CDT Legal Sex Female 8:16 PM CDT Gender Identity Not on file Sexual Orientation Not on file documented as of this encounter Functional Status * Are you deaf or do you have serious difficulty hearing Answer Date of Assessment Author Status No 01/07/2025 1:00 AM CDT Kaylee Westbrook L PN Active * Are you blind or do you have serious difficulty seeing, even when wearing glasses? Answer Date of Assessment Author Status No 01/07/2025 1:00 AM CDT Kaylee Westbrook L PN Active * Do you have serious difficulty walking or climbing stairs? Answer Date of Assessment Author Status Yes 01/07/2025 1:00 AM CDT Kaylee Westbrook L PN Active * Do you have difficulty dressing or bathing? Answer Date of Assessment Author Status Yes 01/07/2025 1:00 AM Kaylee Rajput L PN Active * Because of a physical, mental, or emotional condition, do you have difficulty doing errands alone such as visiting a doctor's office or shopping? Answer Date of Assessment Author Status No 01/07/2025 1:00 AM Kaylee Rajput L PN Active documented as of this encounter Mental Status * Because of a physical, mental, or emotional condition, do you have serious difficulty concentrating, remembering, or making decisions? Answer Entry Date Author Status No 01/07/2025 1:00 AM Kaylee Rajput L PN Active documented in this encounter Plan of Treatment Not on file documented as of this encounter Visit Diagnoses Not on filedocumented in this encounter Care Teams Auxiliary Operator Relationship Specialty Start Date End Date Elida Mcbride PA [address] [place] [address] PCP - General PHYSICIAN MACHINE PRECISION ENGRAVER 01/10/25 documented as of this encounter
--- OUTSIDE RECORDS SUMMARY | 2025-02-14 12:15 | XMS_ITS | Clinical Summary ---
Author Organization [facility] Address [address] [place] [address] Care Team Providers Care Senior Research Project Manager Name Role Phone Jay Shipley MD Primary Care Provider [phone] Source Comments [facility],non-owned Affiliates and Associated Physician Practices is amultiple site organization consisting of ambulatory clinics and hospital sitesin [place], [place], [place] and [place]. This disclosure is being madepursuant to the Care Everywhere program and may not contain all information available regarding this patient. Last updated 18.[facility] Allergies Active Allergy Reactions Criticality Noted Date Comments Penicillins 06/28/2016 Medications * Be aware that medications may not be up to date on this document. Alwaysverify current medications with the patient. albuterol HFA (VENTOLIN HFA) 108 (90 BASE) MCG/ACT inhaler Inhale 2 Puffs by mouth every 6 hours as needed for Shortness of Breath, Wheezing or Cough 1 Inhaler 6 Active azithromycin (ZITHROMAX) 250 MG tablet Take 2 tablets now, then 1 tablet daily for 4 days. 6 Tab 6 Active Social History Tobacco Use Types Packs/Day Years Used Date Smoking Tobacco: Every Day Comments Unknown Sex and Gender Information Value Date Recorded Sex Assigned at Not on file Legal Sex Female 5:09 PM [facility] Gender Identity Not on file Sexual Orientation Not on file Last Filed Vital Signs Vital Sign Reading Time Taken Comments Blood Pressure 140/100 06/28/2016 10:19 AM SOLE [facility]FFER Pulse 84 06/28/2016 10:08 AM [facility]LE [facility]FFER Temperature 37 C (98.6 F) 06/28/2016 10:08 AM SOLE RUFFER Respiratory Rate 16 06/28/2016 10:0 8 AM SOLE RUFFER deep breaths with struggles Oxygen Saturation 97% 06/28/2016 10: 08 AM SOLE RUFFER Inhaled Oxygen Concentration - - Weight 79.4 kg (175 lb) 06/28/2016 10:0 8 AM SOLE RUFFER Height 165.1 cm (5' 5) 06/28/2016 10:0 8 AM SOLE RUFFER Body Mass Index 29.12 06/28/2016 10:08 AM SOLE RUFFER Plan of Treatment Health Maintenance Due Date Last Done Comments COLOGUARD (AGES 45-75) - COL ON CA SCREENING 1966 COLON MONITORING 1966 COLONOSCOPY - COLON CA SCREENING 1966 CT COLONOGRAPHY - COLON CA SCREENING 1966 Colorectal Cancer Screening 1966 FIT - COLON CA SCREENING 1966 FLEX SIG - COLON CA SCREENING 1966 LIPID TESTING 1966 MAMMOGRAM 1966 HIV SCREENING 1981 HEPATITIS C SCREENING 08/10/1984 DTAP/TDAP/TD VACCINES (1 - Tdap) 1985 HEPATITIS B VACCINE (1 of 3 - 19+ 3-dose series) 1985 PNEUMOCOCCAL VACCINE 50+ (1 of 1 - PCV) 2016 ZOSTER VACCINE (1 of 2) 2016 COVID-19 VACCINE (1 - 2023-2 5 season) 2024 DEPRESSION SCREENING 07/04/2024 INFLUENZA VACCINE (#1) 2025 HIB VACCINE Aged Out No longer eligi ble based on patient's age to complete this topic HPV VACCINE Aged Out No longer eligi ble based on patient's age to complete this topic MENINGOCOCCAL (Group B) VACC INE SHARED DECISION-MAKING Aged Out No longer eligibl e based on patient's age to complete this topic MENINGOCOCCAL GROUPS A/C/Y/W VACCINE Aged Out No longer eligible b ased on patient's age to complete this topic Insurance Care Teams Senior Research Project Manager Relationship Specialty Start Date End Date Jay Shipley MD PCP - General Family Medicine 06/28/16
== END 2025-02-14 12:12 | disposition home or self-care (01) ==
PROVIDERS: PCP Family Medicine
DX: R61 Generalized hyperhidrosis (principal); R06.00 Dyspnea, unspecified; J41.0 Simple chronic bronchitis
CPT/HCPCS: 86480; 87070; 87116; 87205; 87206